=== PATIENT | male | born 1970 | race African-American/Black ===

== ENCOUNTER 2020-09-18 11:01 | Emergency (ER) | payer OTHER, SELFPAY ==
--- NOTE | 2020-09-18 11:20 | PC.NURSE ---
Went to lobby to bring pt back to triage. Pt on the phone and told me to hold on. I informed him that i would have to take the next patient .
[2020-09-18 11:35] VITALS: BP 121/78; PULSE 71; RESP 15; TEMP 37.1; O2SAT 98; BMI 32.5
--- NOTE | 2020-09-18 14:10 | ED_ITS ---
HPI - Back Pain/Injury General Chief Complaint: Back Pain/Injury Stated Complaint: feeling weird inside/low back pain/right side pain Time Seen by Provider: 09/18/20 14:07 Source: patient Limitations: no limitations History of Present Illness HPI Narrative: This is a 49-year-old male who states he had traveled to [place], he had developed just a sensation of not feeling well in nausea. He then developed right flank discomfort. He states it never really radiate anywhere else. He has not had any anterior abdominal pain. Patient states he has continued to have discomfort. He has had kidney stones in the past but were typically significantly more painful but was similar area location. Patient states his pain was much worse and has since improved but is still present. He does note a little bit increased discomfort with rotation. Patient states he has had some nausea but no vomiting. He denies any currently. He has had norm al bowel movements without any diarrhea or constipation. No melena or hematochezia. He denies any dysuria, frequency or urgency. Patient denies any rash or skin changes. He denies any chest pain or shortness of breath. Patient denies medical history. No prior surgeries other than knee surgery. No tobacco, alcohol or illicit patient was also somewhat concerned she has a family history of prostate cancer in his father. He does have primary care follow-up tomorrow. He has not taken any pain medication at home. Related Data Allergies Allergy/AdvReac Type Severity Reaction Status Date / Time codeine AdvReac Verified 09/18/20 11:35 Review of Systems Review of Systems ROS Unobtainable: All systems reviewed & are unremarkable except as noted in HPI and below Patient History Surgical History (Updated 09/18/20 @ 14:24 by Peyton Doll DO) H/O knee surgery Social History Smoking Status: Unknown if ever smoked Smoking Status: Unknown if ever smoked alcohol intake frequency: holidays/special occasions only Substance Use Type: does not use Exam Narrative Exam Narrative: GENERAL: Alert and oriented x three, well-nourished male in mild distress. HEENT: Head normocephalic, atraumatic, EOMI, pupils reactive, face symmetric, moist mucous membranes NECK: Supple, full range of motion CARDIOVASCULAR: Regular rate and rhythm without murmurs, rubs or gallops. RESPIRATORY: Breath sounds equal bilaterally, no wheezes rales or rhonchi. ABDOMEN: Soft, nontender. Normoactive bowel sounds all 4 quadrants. No guarding or rebound, rigidity, no mass : No CVA tenderness bilaterally. BACK: No cervical, thoracic or lumbar vertebral point tenderness. Patient has normal range of motion. Patient's gait is normal. EXTREMITIES: Normal range of motion, no clubbing or edema. 5/5 muscle strength bilateral lower extremities. Neurovascularly intact NEUROLOGICAL: Cranial nerves II through XII grossly intact. Moving all extremities SKIN: Warm, dry, no petechiae, no rashes or lesions. Initial Vital Signs Initial Vital Signs: Vital Signs Temperature 98.8 F 09/18/20 11:35 Pulse Rate 71 09/18/20 11:35 Respiratory Rate 15 09/18/20 11:35 Blood Pressure 121/78 09/18/20 11:35 Pulse Oximetry 98 09/18/20 11:35 Course Orders Ordered: ED Orders 09/18/20 14:21 US abdomen complete Stat 09/18/20 14:35 Complete Blood Count AUTO DIFF Stat Comprehensive Metabolic Panel Stat Lipase Stat Discontinued Medications Ketorolac Tromethamine (Ketorolac 30 Mg/Ml Vial) 15 mg IV NOW ONE Stop: 09/18/20 14:22 Last Admin: 09/18/20 14:32 Dose: 15 mg Documented by: KADIE Vital Signs Vital signs: Vital Signs - 8 hr 09/18/20 11:35 09/18/20 15:35 Temperature 98.8 F Pulse Rate 71 60 Respiratory Rate 15 Blood Pressure 121/78 115/73 Pulse Oximetry 98 100 MDM - Back Pain/Injury Lab Data Attestation: I reviewed the patient's lab results. Result diagrams: 09/18/20 14:35 09/18/20 14:35 Labs: Lab Results 09/18/20 09/18/20 Range/Units 14:35 14:35 WBC 5.0 (4.5-11.0) X10^3/uL RBC 4.78 (4.5-5.9) X10^6/uL Hgb 15.0 (13.5-17.5) g/dL Hct 44.3 (41-53) % MCV 92.6 (80-100) fL MCH 31.4 (26-34) PG MCHC 33.9 (30-36) % RDW 13.0 (11.6-14.8) % Plt Count 229 (150-400) X10^3/uL Neut % (Auto) 59.9 (50-75) % Lymph % (Auto) 30.4 (25-40) % [place] % (Auto) 7.4 (3-14) % Eos % (Auto) 1.8 L (2-4) % Baso % (Auto) 0.5 (0-2) % Neut # (Auto) 3000 (8985-1438) /uL Lymph # (Auto) 1500 (4238-9849) /uL [place] # (Auto) 400 (0-900) /uL Eos # (Auto) 100 (0-450) /uL Baso # (Auto) 0 (0-100) /uL Sodium 139 (137-145) mmol/L Potassium 3.9 (3.4-5.1) mmol/L Chloride 104 (98-107) mmol/L Carbon Dioxide 28 (22-32) mmol/L BUN 11 (9-20) mg/dL Creatinine 0.96 (0.66-1.25) mg/dL Estimated GFR > 60.0 (>60) mL/min BUN/Creatinine Ratio 11.5 (6-22) Glucose 83 (70-100) mg/dL Calcium 9.6 (8.4-10.2) mg/dL Total Bilirubin 0.7 (0.2-1.3) mg/dL AST 25 (17-59) IU/L ALT 30 (<50) IU/L Alkaline Phosphatase 96 (38-126) U/L Total Protein 7.8 (6.3-8.2) g/dL Albumin 4.3 (3.5-5.0) g/dL Globulin 3.5 (1.7-4.1) g/dL Albumin/Globulin Ratio 1.2 (1.0-2.8) Lipase 38 (23-300) U/L Urine Dip Bedside Urine Glucose Negative Bedside Urine Bilirubin - Negative Bedside Urine Ketone - Negative Urine Specific [place] 1.015 Bedside Urine Occult Blood - Negative Bedside Urine pH 6.0 Bedside Urine Protein - Negative Bedside Urine Urobilinogen - Negative Bedside Urine Nitrite - Negative Bedside Urine Leukocytes - Negative Esterase Imaging Data US - abdomen: Radiologist's Impression: Chart Viewer Diagnostics DATE TYPE STATUS REF RANGE/AUTHOR Hx Today 14:21 DevonClifford Cruz Rogers R 49, M1970 [facility], [facility] ED R13 182.88cm 108.862kg BMI: 32.5kg/m? Back Pain/Injury Search Chart No Data to Display No Data to Display ONSET Today 11:35 Cruz Rogers 49 M [address] [id number] ReportSigned Patient: Cruz Rogers RMR#: [id number]: [id number]:[id number]/Sex: 49 / MDate of Service: 09/18/20Loc: EDAccession Number: [id number] Procedure: US abdomen complete Ordering Provider: Peyton Doll D.O. PROCEDURE: US ABDOMEN COMPLETE INDICATIONS: RIGHT FLANK PAIN TECHNIQUE: Real-time scanning was performed of the abdominal and retroperitoneal organs, with image documentation. COMPARISON: None. FINDINGS: Liver: Liver is normal in size and homogeneous in echotexture. Gallbladder: Gallbladder appears contracted, normal wall thickness and no definite evidence of acute cholecystitis. Biliary ducts: Intrahepatic bile ducts are non-dilated. Extrahepatic bile duct caliber measures 3.8 mm. Normal is 6-7 mm or less in diameter, or 10 mm or less post-cholecystectomy. Pancreas: Visualized portions of the pancreas are sonographically normal. Spleen: Spleen is normal in size and homogeneous in echotexture. Kidneys: Kidneys are normal in size and echotexture. Right kidney measures 11.7 cm long; left kidney measures 11.9 cm long. No hydronephrosis or nephrolithiasis. No solid masses. Aorta: Visualized aorta is normal in caliber at less than 3 cm. Iliacs: Proximal common iliac arteries are normal in caliber at less than 2.5 cm. IVC: Intrahepatic inferior vena cava is patent. Miscellaneous: No free abdominal fluid. IMPRESSION: Normal examination, source of current symptoms is not seen. Depending on the clinical status follow-up by CT scanning may become necessary. Dictated by: Clifford Osorio M.D. on 09/18/2020 at 15:03 Approved by: Clifford Osorio M.D. on 09/18/2020 at 15:04 [facility] Narrative Medical decision making narrative: This is a 49-year-old male comes in with right flank pain has been going on for about a week. Patient does have some increased symptoms with movement. He has negative urine, normal labs with ultrasound imaging not showing any acute findings. My suspicion for renal stone is lower at this time. I suspect it may be musculoskeletal. Does not have any intra-abdominal symptoms on palpation and patient had normal bowel movements with some mild nausea. Patient has follow-up tomorrow with his primary care service and plan to give a short course of pain control and follow-up tomorrow. Discharge Plan Departure Patient Disposition: Home Clinical Impression: Flank pain Instructions: DI for Flank Pain Activity Restrictions/Additional Instructions: Follow up with your physician at your appointment tomorrow. You may take Tylenol up to a 1000 mg every 8 hours. If this is an adequate you can take ibuprofen up to 800 mg every 8 hours. Please return for fevers, rapidly worsening symptoms, lightheadedness or passing out, persistent vomiting, black or bloody stools, new or worsening abdominal pa in, chest pain or shortness of breath or other new or concerning symptoms. Referrals: Yaron Palmer MD [Primary Care Provider] -
--- NOTE | 2020-09-18 14:21 | DI.US.S_ITS ---
PROCEDURE: US ABDOMEN COMPLETE INDICATIONS: RIGHT FLANK PAIN TECHNIQUE: Real-time scanning was performed of the abdominal and retroperitoneal organs, with image documentation. COMPARISON: None. FINDINGS: Liver: Liver is normal in size and homogeneous in echotexture. Gallbladder: Gallbladder appears contracted, normal wall thickness and no definite evidence of acute cholecystitis. Biliary ducts: Intrahepatic bile ducts are non-dilated. Extrahepatic bile duct caliber measures 3.8 mm. Normal is 6-7 mm or less in diameter, or 10 mm or less post-cholecystectomy. Pancreas: Visualized portions of the pancreas are sonographically normal. Spleen: Spleen is normal in size and homogeneous in echotexture. Kidneys: Kidneys are normal in size and echotexture. Right kidney measures 11.7 cm long; left kidney measures 11.9 cm long. No hydronephrosis or nephrolithiasis. No solid masses. Aorta: Visualized aorta is normal in caliber at less than 3 cm. Iliacs: Proximal common iliac arteries are normal in caliber at less than 2.5 cm. IVC: Intrahepatic inferior vena cava is patent. Miscellaneous: No free abdominal fluid. IMPRESSION: Normal examination, source of current symptoms is not seen. Depending on the clinical status follow-up by CT scanning may become necessary. Dictated by: Clifford Osorio M.D. on 09/18/2020 at 15:03 Approved by: Clifford Osorio M.D. on 09/18/2020 at 15:04
[2020-09-18] MEDS: KETOROLAC 30 MG/ML VIAL 15 MG IV (14:32)
[2020-09-18 14:44] LABS: Add Manual Diff / Slide Review NO; Basophils Absolute Auto 0 /uL (0-100); Basophils Percent Auto 0.5 % (0-2); Eosinophils Absolute Auto 100 /uL (0-450); Eosinophils Percent Auto 1.8 % (2-4); Hematocrit 44.3 % (41-53); Lymphocytes Absolute Auto 1500 /uL (1100-4500); Lymphocytes Percent Auto 30.4 % (25-40); Mean Corpuscular HGB Conc 33.9 % (30-36); Mean Corpuscular Hemoglobin 31.4 PG (26-34); Mean Corpuscular Volume 92.6 fL (80-100); Monocytes Absolute Auto 400 /uL (0-900); Monocytes Percent Auto 7.4 % (3-14); Neutrophils Absolute Auto 3000 /uL (1500-7000); Neutrophils Percent Auto 59.9 % (50-75); Platelet Count 229 X10^3/uL (150-400); Red Blood Cell Count 4.78 X10^6/uL (4.5-5.9)
[2020-09-18 14:55] LABS: Alanine Aminotransferase 30 IU/L (<50); Albumin 4.3 g/dL (3.5-5.0); Albumin Globulin Ratio 1.2 (1.0-2.8); Alkaline Phosphatase 96 U/L (38-126); Aspartate Aminotransferase 25 IU/L (17-59); BUN Creatinine Ratio 11.5 (6-22); Bilirubin Total 0.7 mg/dL (0.2-1.3); Blood Urea Nitrogen 11 mg/dL (9-20); Calcium 9.6 mg/dL (8.4-10.2); Carbon Dioxide 28 mmol/L (22-32); Chloride 104 mmol/L (98-107); Estimated Glomerular Filt Rate > 60.0 mL/min (>60); Globulin 3.5 g/dL (1.7-4.1); Glucose 83 mg/dL (70-100); HEMOLYSIS 17 (0-50); Lipase 38 U/L (23-300); Potassium 3.9 mmol/L (3.4-5.1); Sodium 139 mmol/L (137-145); Total Protein 7.8 g/dL (6.3-8.2)
[2020-09-18 15:35] VITALS: BP 115/73; PULSE 60; O2SAT 100
== END 2020-09-18 15:36 | disposition home or self-care (01) ==
PROVIDERS: Emergency Provider Emergency Medicine; PCP Family Medicine
DX: R10.9 Unspecified abdominal pain (principal); R11.0 Nausea
CPT/HCPCS: 36415; 76700; 80053; 81003; 83690; 85025; 96374; 99284; J1885

== ENCOUNTER 2021-07-15 07:13 | Emergency (ER) | payer OTHER, SELFPAY ==
[2021-07-15 07:15] VITALS: BP 139/79; PULSE 76; RESP 18; TEMP 36.5; O2SAT 100; BMI 32.8
--- NOTE | 2021-07-15 07:23 | ED.BACK ---
HPI - Back Pain/Injury General Chief Complaint: Back Pain/Injury Stated Complaint: Severe lower back pain. Thinks Kidney stones Time Seen by Provider: 07/15/21 07:16 History of Present Illness HPI Narrative: 50-year-old male nonsmoker with no significant medical history presents with his in the chief complaint of low back pain over the past 2-3 days. He states his pain started gradually on or Thursday and was and bilateral flanks, perhaps left greater than right and has intensified over the weekend. He thought initially was a muscle spasm due to working out and playing golf, however after taking Tylenol and Motrin on multiple occasions he has little if any improvement. He states his pain is worse when he sits still or when he lays down it seems to improve it when he is moving. He denies any radiation of the pain other than perhaps around his side is a bit but certainly none down his legs. He denies any trauma. He takes no blood thinners and has had no fever chills. He denies any loss of control of bowel or bladder nor does he have lower extremity numbness, tingling or weakness. Related Data Previous Rx's Medication Instructions Recorded ketorolac 10 mg tablet 10 mg PO Q6H PRN #14 tab 07/15/21 tamsulosin 0.4 mg capsule (Flomax) 0.4 mg PO DAILY #10 cap 07/15/21 Allergies Allergy/AdvReac Type Severity Reaction Status Date / Time codeine AdvReac Verified 07/15/21 07:51 Review of Systems Review of Systems Narrative: GENERAL: Denies chills, fatigue, malaise, fever, sweats. HEENT: Denies sinus pain, ear pain, sore throat, difficulty swallowing, dizziness. RESPIRATORY: Denies dyspnea, cough, wheezing, hemoptysis, sputum. CARDIOVASCULAR: Denies chest pain, palpitations, orthopnea, edema, GASTROINTESTINAL: Denies nausea, vomiting, abdominal pain, diarrhea, constipation, melena. : Denies dysuria, frequency, incontinence, hematuria, urinary retention. MUSCULOSKELETAL: See HPI SKIN: Denies rash, skin lesions, or other NEUROLOGIC: Denies weakness, headache, numbness, change in speech, confusion, seizures, incoordination. PSYCHIATRIC: No concerning psychosocial issues. 12 point review of systems is negative except for those stated above Patient History Surgical History H/O knee surgery Social History Smoking Status: Unknown if ever smoked Smoking Status: Unknown if ever smoked alcohol intake frequency: holidays/special occasions only Substance Use Type: does not use Exam Narrative Exam Narrative: GENERAL: [50] year old patient appears stated age. Well-developed patient, in mild distress. HEAD: Atraumatic. Normocephalic. EYES: Pupils equal round and reactive. Extraocular motions intact. No scleral icterus. No injection or drainage. ENT: Nose without bleeding, purulent drainage. Throat without erythema, tonsillar hypertrophy or exudate. Airway patent. NECK: Trachea midline. Non tender CARDIOVASCULAR: Regular rate and rhythm without murmurs, gallops, or rubs. RESPIRATORY: Clear to auscultation. Breath sounds equal bilaterally. No wheezes, rales, or rhonchi. GASTROINTESTINAL: Abdomen soft, non-tender, nondistended. EXTREMITIES: No edema or joint tenderness. BACK: flotation tender but free of any obvious external abnormalities. Patient exam notes decreased range of motion and muscle spasm, but no CVA tenderness, or vertebral point tenderness. There are no symptoms of cauda equina such as saddle anesthesia, and decreased reflexes, decreased sensation or strength. NEURO: AOx3. SKIN: No rash or erythema of visible areas Initial Vital Signs Initial Vital Signs: Vital Signs Temperature 97.7 F 07/15/21 07:15 Pulse Rate 76 07/15/21 07:15 Respiratory Rate 18 07/15/21 07:15 Blood Pressure 139/79 07/15/21 07:15 Pulse Oximetry 100 07/15/21 07:15 Course Orders Ordered: ED Orders 07/15/21 07:40 Complete Blood Count AUTO DIFF Stat Comprehensive Metabolic Panel Stat 07/15/21 08:24 CT kidney ureter bladder (KUB) Stat Discontinued Medications Sodium Chloride (Normal Saline 0.9%) 1,000 mls @ 1,000 mls/hr IV BOLUS ONE Stop: 07/15/21 08:21 Last Infusion: 07/15/21 08:37 Dose: 0 mls/hr Documented by: Admin: 07/15/21 07:32 Dose: 1,000 mls/hr Documented by: KADIE Ketorolac Tromethamine (Ketorolac 30 Mg/Ml Vial) 15 mg IV NOW ONE Stop: 07/15/21 07:23 Last Admin: 07/15/21 07:32 Dose: 15 mg Documented by: KADIE Vital Signs Vital signs: Vital Signs - 8 hr 07/15/21 07:15 Temperature 97.7 F Pulse Rate 76 Respiratory Rate 18 Blood Pressure 139/79 Pulse Oximetry 100 MDM - Back Pain/Injury Lab Data Result diagrams: 07/15/21 07:40 07/15/21 07:40 Labs: Lab Results 07/15/21 07/15/21 Range/Units 07:40 07:40 WBC 3.4 L (4.5-11.0) X10^3/uL RBC 4.80 (4.5-5.9) X10^6/uL Hgb 14.8 (13.5-17.5) g/dL Hct 43.8 (41-53) % MCV 91.3 (80-100) fL MCH 30.9 (26-34) PG MCHC 33.8 (30-36) % RDW 13.3 (11.6-14.8) % Plt Count 189 (150-400) X10^3/uL Neut % (Auto) 53.7 (50-75) % Lymph % (Auto) 35.8 (25-40) % [place] % (Auto) 7.9 (3-14) % Eos % (Auto) 2.1 (2-4) % Baso % (Auto) 0.5 (0-2) % Neut # (Auto) 1800 (6476-2220) /uL Lymph # (Auto) 1200 (0915-2199) /uL [place] # (Auto) 300 (0-900) /uL Eos # (Auto) 100 (0-450) /uL Baso # (Auto) 0 (0-100) /uL Sodium 139 (137-145) mmol/L Potassium 4.0 (3.4-5.1) mmol/L Chloride 106 (98-107) mmol/L Carbon Dioxide 28 (22-32) mmol/L BUN 10 (9-20) mg/dL Creatinine 0.93 (0.66-1.25) mg/dL Estimated GFR > 60.0 (>60) mL/min BUN/Creatinine Ratio 10.8 (6-22) Glucose 101 H (70-100) mg/dL Calcium 9.1 (8.4-10.2) mg/dL Total Bilirubin 1.0 (0.2-1.3) mg/dL AST 25 (17-59) IU/L ALT 24 (<50) IU/L Alkaline Phosphatase 72 (38-126) U/L Total Protein 7.5 (6.3-8.2) g/dL Albumin 4.2 (3.5-5.0) g/dL Globulin 3.3 (1.7-4.1) g/dL Albumin/Globulin Ratio 1.3 (1.0-2.8) Urine Dip Bedside Urine Glucose Negative Bedside Urine Bilirubin - Negative Bedside Urine Ketone - Negative Urine Specific [place] 1.015 Bedside Urine Occult Blood - Negative Bedside Urine pH 7.0 Bedside Urine Protein - Negative Bedside Urine Urobilinogen - Negative Bedside Urine Nitrite - Negative Bedside Urine Leukocytes - Negative Esterase Imaging Data CT scan - abdomen/pelvis: Radiologist's Impression: Close Abdomen/Pelvis CT (Signed) Kathy Lawton - 07/15/21 Abdomen Ultrasound (Signed) Clifford Osorio - 09/18/20 [place] [address] CT Scan Report Signed Patient: Cruz Rogers MR#: [id number] : 1970 Acct:[id number] Age/Sex: 50 / M Date of Service: 07/15/21 Loc: ED Accession Number: [id number] ?? Procedure: CT kidney ureter bladder (KUB) Ordering Provider: Luis Angel Andrews D.O. PROCEDURE:? CT KIDNEY URETER BLADDER (KUB) ? INDICATIONS:? severe back pain, history of stones ? TECHNIQUE:? Axial sections were acquired from the lung bases to the pubic symphysis.? Coronal and sagittal reformats were performed.? For radiation dose reduction, the following was used: ?automated exposure control, adjustment of mA and/or kV according to patient size.? ? COMPARISON:[facility], , US ABDOMEN COMPLETE, 09/18/2020, 14:42. ? FINDINGS:? Image quality:? Excellent.? ? Lung bases:? Unremarkable.? ? Heart:? No significant findings. ? URINARY: Right Kidney:? Minimal to mild hydronephrosis.? No renal calculi.? Right Ureter:? No hydroureter.? No stones.? ? Left Kidney: ? No stones or hydronephrosis. Left Ureter:? No hydroureter.? ? Bladder:? Normal wall thickness. No stones. ? ? ? ABDOMEN: Liver:? Liver is enlarged measuring 20.0 cm. Gallbladder:? Unremarkable.? ? Biliary ducts:? Unremarkable.? ? Pancreas:? Unremarkable.? ? Spleen:? Unremarkable.? ? Adrenal Glands:? Unremarkable.? ? ? Stomach and Bowel:? Stomach, small bowel loops, and colon are unremarkable.? The appendix is normal. Peritoneum:? No abnormal intraperitoneal fluid.? No free air.? ? Ventral Wall: ? Fat containing umbilical hernia is present with rectus diastasis measuring 24 mm. Abdominal Nodes:? No enlarged retroperitoneal or mesenteric lymph nodes.? Vessels:? Aorta and inferior vena cava are normal in size.? ? PELVIS: Pelvic Organs:? Unremarkable.? ? Pelvic Nodes: Unremarkable. Miscellaneous: No inguinal hernias are seen. ? ? ? Bones:? Unremarkable. ? IMPRESSION:? ? Minimal to mild right hydronephrosis without visualized stone.? This could be indicative of recently passed stone. ? Dictated by: Kathy Lawton M.D. on 07/15/2021 at 8:40 ? ? Approved by: Kathy Lawton M.D. on 07/15/2021 at 8:46 ? MDM Narrative Medical decision making narrative: Patient presents with low back pain that reminds him of prior kidney stones. No obvious provocation or palliation. Patient has no signs of sepsis. Urine shows no sign of infection. Labs reviewed and unremarkable. Pain well controlled after above-stated therapies. CT does not show current evidence of stone or other significant abnormality though subtle evidence of hydronephrosis raises the question of the possibility of a stone not seen on scan or recently passed. Multiple etiologies of back pain considered including; Epidural abscess, cauda equina, mass occupying lesion, and other considered, however no evidence of a neuro surgical emergency is present. Most likely renal colic due to missed or recently passed kidney stone. Return precautions discussed and questions answered to his apparent satisfaction Discharge Plan Departure Patient Disposition: Home Clinical Impression: Acute back pain Instructions: DI for Low Back Pain Activity Restrictions/Additional Instructions: *You have been diagnosed with [low back pain. Your history and physical exam are very reassuring and there is no indication of a neuro surgical our emergency. The CT scan has some suggestion of the possibility of a passed kidney stone but no obvious kidney stone is noted on the current scan. *What to do: *Please continue to take your regular medications as directed. [x ] New medication prescriptions sent to your pharmacy: [ [facility]] [ ] New medication written as a paper prescription [ ] No new medications given *Please follow up with your primary care provider in 2-3 days, call for an appointment. Let them know you were seen in the Emergency Department and that we ask that you be seen in follow up. We will electronically transmit a record of today's note if your PCP is in our system *If you do not have a primary care provider please contact the [facility] Resource line at [phone]. They will ask some questions about your medical history and help get you set up with a doctor in the community. *Return to Emergency Department if you should have any new, worsening or concerning symptoms, such as [fever greater than 101 F, shaking chills, worsening pain, persistent vomiting or other bothersome symptoms] Prescriptions: New ketorolac 10 mg tablet 10 mg PO Q6H PRN (Reason: pain) Qty: 14 0RF tamsulosin [Flomax] 0.4 mg capsule 0.4 mg PO DAILY Qty: 10 0RF Referrals: Yaron Palmer MD [Primary Care Provider] -
[2021-07-15] MEDS: SODIUM CHLORIDE 0.9% 1,000 ML 1000 ML IV (07:32)
[2021-07-15] MEDS: KETOROLAC 30 MG/ML VIAL 15 MG IV (07:32)
[2021-07-15 07:47] LABS: Add Manual Diff / Slide Review NO; Basophils Absolute Auto 0 /uL (0-100); Basophils Percent Auto 0.5 % (0-2); Eosinophils Absolute Auto 100 /uL (0-450); Eosinophils Percent Auto 2.1 % (2-4); Hematocrit 43.8 % (41-53); Hemoglobin 14.8 g/dL (13.5-17.5); Lymphocytes Absolute Auto 1200 /uL (1100-4500); Lymphocytes Percent Auto 35.8 % (25-40); Mean Corpuscular HGB Conc 33.8 % (30-36); Mean Corpuscular Hemoglobin 30.9 PG (26-34); Mean Corpuscular Volume 91.3 fL (80-100); Monocytes Absolute Auto 300 /uL (0-900); Monocytes Percent Auto 7.9 % (3-14); Neutrophils Absolute Auto 1800 /uL (1500-7000); Neutrophils Percent Auto 53.7 % (50-75); Platelet Count 189 X10^3/uL (150-400); Red Cell Distribution Width 13.3 % (11.6-14.8); White Blood Cell Count 3.4 X10^3/uL (4.5-11.0)
[2021-07-15 08:00] LABS: Alanine Aminotransferase 24 IU/L (<50); Albumin 4.2 g/dL (3.5-5.0); Albumin Globulin Ratio 1.3 (1.0-2.8); Alkaline Phosphatase 72 U/L (38-126); Aspartate Aminotransferase 25 IU/L (17-59); BUN Creatinine Ratio 10.8 (6-22); Blood Urea Nitrogen 10 mg/dL (9-20); Calcium 9.1 mg/dL (8.4-10.2); Carbon Dioxide 28 mmol/L (22-32); Chloride 106 mmol/L (98-107); Estimated Glomerular Filt Rate > 60.0 mL/min (>60); Globulin 3.3 g/dL (1.7-4.1); Glucose 101 mg/dL (70-100); HEMOLYSIS < 15 (0-50); Sodium 139 mmol/L (137-145); Total Protein 7.5 g/dL (6.3-8.2)
--- NOTE | 2021-07-15 08:24 | DI.CT.S_ITS ---
PROCEDURE: CT KIDNEY URETER BLADDER (KUB) INDICATIONS: severe back pain, history of stones TECHNIQUE: Axial sections were acquired from the lung bases to the pubic symphysis. Coronal and sagittal reformats were performed. For radiation dose reduction, the following was used: automated exposure control, adjustment of mA and/or kV according to patient size. COMPARISON: [facility], , US ABDOMEN COMPLETE, 09/18/2020, 14:42. FINDINGS: Image quality: Excellent. Lung bases: Unremarkable. Heart: No significant findings. URINARY: Right Kidney: Minimal to mild hydronephrosis. No renal calculi. Right Ureter: No hydroureter. No stones. Left Kidney: No stones or hydronephrosis. Left Ureter: No hydroureter. Bladder: Normal wall thickness. No stones. ABDOMEN: Liver: Liver is enlarged measuring 20.0 cm. Gallbladder: Unremarkable. Biliary ducts: Unremarkable. Pancreas: Unremarkable. Spleen: Unremarkable. Adrenal Glands: Unremarkable. Stomach and Bowel: Stomach, small bowel loops, and colon are unremarkable. The appendix is normal. Peritoneum: No abnormal intraperitoneal fluid. No free air. Ventral Wall: Fat containing umbilical hernia is present with rectus diastasis measuring 24 mm. Abdominal Nodes: No enlarged retroperitoneal or mesenteric lymph nodes. Vessels: Aorta and inferior vena cava are normal in size. PELVIS: Pelvic Organs: Unremarkable. Pelvic Nodes: Unremarkable. Miscellaneous: No inguinal hernias are seen. Bones: Unremarkable. IMPRESSION: Minimal to mild right hydronephrosis without visualized stone. This could be indicative of recently passed stone. Dictated by: Kathy Lawton M.D. on 07/15/2021 at 8:40 Approved by: Kathy Lawton M.D. on 07/15/2021 at 8:46
[2021-07-15 09:29] VITALS: BP 118/60; PULSE 70; RESP 18; O2SAT 100
== END 2021-07-15 09:30 | disposition home or self-care (01) ==
PROVIDERS: Emergency Provider Emergency Medicine; PCP Family Medicine
DX: M54.50 Low back pain, unspecified (principal)
CPT/HCPCS: 36415; 74176; 80053; 81003; 85025; 96361; 96374; 99284; J1885